=== PATIENT | male | born 1950 | race Caucasian/White ===

== ENCOUNTER 2017-09-15 17:38 | Inpatient (IN) | payer SELFPAY ==
[~2017-09-15] VITALS: Ht 175.3 cm; Wt 143.3 kg
[2017-09-15 19:09] LABS: BASOPHILS % (AUTO) 0.3 % (0.0-2.0); HEMATOCRIT 33.1 % (41-53); HEMOGLOBIN 10.9 g/dL (13.5-17.5); LYMPHOCYTES # (AUTO) 1.4 K/uL (1.0-4.8); LYMPHOCYTES % (AUTO) 13.7 % (22.0-44.0); MEAN CORPUSCULAR HEMOGLOBIN 30.5 pg (26.0-34.0); MEAN CORPUSCULAR VOLUME 93 fL (80-100); MONOCYTES # (AUTO) 0.6 K/uL (0.1-1.0); MONOCYTES % (AUTO) 5.9 % (2.0-9.0); NEUTROPHILS # (AUTO) 7.8 K/uL (1.8-7.7); NEUTROPHILS % (AUTO) 77.1 % (40.0-70.0); PLATELET COUNT (AUTO) 275 K/uL (150-450); RED BLOOD CELL COUNT(AUTO) 3.57 MIL/uL (4.50-5.90); RED CELL DISTRIBUTION WIDTH 18.4 % (11.5-14.5); WHITE BLOOD COUNT (AUTO) 10.1 K/uL (4.5-11.0)
[2017-09-15 19:18] LABS: ANION GAP 5 mmol/L (8-16); CALCIUM, TOTAL 9.2 mg/dL (8.8-10.5); CARBON DIOXIDE 31 mmol/L (22-29); CHLORIDE 106 mmol/L (98-107); CREATININE 1.35 mg/dL (0.60-1.30); GLOMERULAR FILTR. RATE CALC 53 mL/min (>60); SODIUM SERUM 142 mmol/L (136-145); UREA NITROGEN, BLOOD 18 mg/dL (7-18)
[2017-09-15 19:24] LABS: ALANINE AMINOTRANSFERASE 14 U/L (12-78); ALBUMIN 3.5 g/dL (3.4-5.0); ASPARTATE AMINOTRANSFERASE 22 U/L (15-37); BILIRUBIN,TOTAL 1.6 mg/dL (0.1-1.0)
[2017-09-15] MEDS ORDERED: HALOPERIDOL 5 MG TABLET PO PRN (20:45)
[2017-09-15] MEDS ORDERED: ZOLPIDEM TARTRATE 10 MG TABLET PO PRN (20:45)
[2017-09-15] MEDS ORDERED: LORazepam 2 MG TABLET PO PRN (20:45)
[2017-09-15 21:46] LABS: RBC MORPHOLOGY COMMENT ABNORMAL RBC MORPH
[2017-09-15 22:09] LABS: GLUCOSE,POINT OF CARE 139 MG/DL (70-110)
[2017-09-15 22:42] VITALS: BP 129/68
[2017-09-16 01:39] VITALS: BP 134/80
[2017-09-16 07:29] LABS: CHOL/HDL RATIO 3.9 (4.2-7.3); THYROID STIMULATING HORMONE 4.95 uIU/mL (0.36-3.74)
[2017-09-16 08:05] VITALS: BP 150/75
== END 2017-09-16 15:45 | disposition home or self-care (01) | DRG 885 ==
LOC: EMS 17:39 → 3EI 21:56
PROVIDERS: ADMIT Psychiatry & Neurology Psychiatry; ATTEND Psychiatry & Neurology Psychiatry
DX: F23 Brief psychotic disorder (principal); I11.0 Hypertensive heart disease with heart failure; I50.9 Heart failure, unspecified; E11.9 Type 2 diabetes mellitus without complications; D64.9 Anemia, unspecified; F12.90 Cannabis use, unspecified, uncomplicated; F15.90 Other stimulant use, unspecified, uncomplicated; F32.9 Major depressive disorder, single episode, unspecified; E66.3 Overweight; Z68.42 Body mass index [BMI] 45.0-49.9, adult
CPT/HCPCS: 82962; 84439; 84443; 93005; 99285; G0480

== ENCOUNTER 2017-11-22 00:18 | Inpatient (IN) | payer MEDICARE ==
[~2017-11-22] VITALS: Ht 175.3 cm; Wt 1149.6 kg
[2017-11-22] MEDS ORDERED: FURO20 PO (00:34)
[2017-11-22] MEDS ORDERED: HTN PO (00:34)
[2017-11-22] MEDS ORDERED: METF500T4 PO (00:34)
[2017-11-22 00:52] LABS: GLUCOSE,POINT OF CARE 142 MG/DL (70-110)
[2017-11-22 03:27] LABS: BASOPHILS % (AUTO) 0.4 % (0.0-2.0); EOSINOPHILS % (AUTO) 0.9 % (1.0-6.0); HEMATOCRIT 40.9 % (41-53); HEMOGLOBIN 13.2 g/dL (13.5-17.5); LYMPHOCYTES # (AUTO) 1.5 K/uL (1.0-4.8); LYMPHOCYTES % (AUTO) 12.2 % (22.0-44.0); MEAN CORPUSCULAR HEMOGLOBIN 29.9 pg (26.0-34.0); MEAN CORPUSCULAR HGB CONC 32.3 G/dL (31.0-37.0); MEAN CORPUSCULAR VOLUME 93 fL (80-100); MONOCYTES # (AUTO) 0.6 K/uL (0.1-1.0); MONOCYTES % (AUTO) 5.2 % (2.0-9.0); NEUTROPHILS # (AUTO) 10.1 K/uL (1.8-7.7); NEUTROPHILS % (AUTO) 81.3 % (40.0-70.0); RED BLOOD CELL COUNT(AUTO) 4.41 MIL/uL (4.50-5.90); RED CELL DISTRIBUTION WIDTH 17.6 % (11.5-14.5)
[2017-11-22 03:59] LABS: CALCIUM, TOTAL 9.3 mg/dL (8.8-10.5); CREATININE 1.31 mg/dL (0.60-1.30); POTASSIUM 5.4 mmol/L (3.5-5.1)
[2017-11-22 04:05] LABS: ALBUMIN 3.8 g/dL (3.4-5.0); BILIRUBIN,TOTAL 0.8 mg/dL (0.1-1.0); TOTAL PROTEIN, SERUM 8.9 g/dL (6.4-8.2)
[2017-11-22] MEDS ORDERED: AZITHROMYCIN 500 MG/NS 250 ML IV ONE (04:15)
[2017-11-22] MEDS ORDERED: CefTRIAXone 1 GM/DEXTROSE 50 ML IV ONE (04:15)
[2017-11-22] MEDS ORDERED: SODIUM CHLORIDE 0.9% 1,000 ML IV ONE (04:15)
[2017-11-22 04:23] LABS: ABG A-A DIFF O2 487.5 mmHg (10-20.0); ABG BASE EXCESS 9.4 mmol/L (-2.0-3.0); ABG CARBOXYHEMOGLOBIN 2.2 % (0.0-1.5); ABG HCO3 27.9 mmol/L (22.0-26.0); ABG METHEMOGLOBIN 0.6 % (0.0-1.5); ABG OXYGEN CONTENT 17.4 mL/dL (15.0-23.0); ABG OXYGEN SATURATION 88.9 % (95.0-98.0); ABG OXYHEMOGLOBIN 86.4 % (94.0-100.0); ABG TOTAL HEMOGLOBIN 14.3 G/dL (12.0-18.0); PO2, ARTERIAL BG 74.4 mmHg (79.0-87.0); SOURCE, BLOOD GAS ARTERIAL; TEMPERATURE, FAHRENHEIT, BG 98.6 FAHREN (96.0-98.6)
[2017-11-22 04:24] LABS: ABG PCO2 151 mmHg (35-45); ABG PH 7.041 (7.35-7.450); SITE, BLOOD GAS LFT RADIAL
[2017-11-22 04:25] LABS: O2 DEVICE,BLOOD GAS NON REBREATHER (ROOM AIR)
[2017-11-22] MEDS ORDERED: RAPID SEQUENCE KIT [RSI] 1 EACH KIT ONE (04:30)
[2017-11-22] MEDS ORDERED: SUCCINYLCHOLINE CHLORIDE 20 MG/ML 10 ML VIAL ONE (04:31)
[2017-11-22] MEDS ORDERED: PROPOFOL 1000 MG/ISO-OSM 100 ML IV ONE (05:02)
[2017-11-22 05:15] LABS: PLATELET COUNT (AUTO) 263 K/uL (150-450)
[2017-11-22] MEDS ORDERED: ACETAMINOPHEN 325 MG TABLET PO PRN (05:30)
[2017-11-22] MEDS ORDERED: ONDANSETRON HCL 4 MG/2 ML VIAL IVP PRN ×2 (05:30→14:15)
[2017-11-22] MEDS ORDERED: 0.9% SODIUM CHLORIDE 10 ML SYRINGE IVP PRN (05:30)
[2017-11-22] MEDS: PROPOFOL 1000 MG/ISO-OSM 100 ML IV PRN ×6 (05:41→21:45)
[2017-11-22 05:54] LABS: APPEARANCE,URINE CLOUDY (CLEAR); GLUCOSE, URINE (UA) NEGATIVE (NEGATIVE); KETONES,URINE NEGATIVE (NEGATIVE); LEUKOCYTE ESTERASE ,URINE NEGATIVE (NEGATIVE); NITRATE,URINE NEGATIVE (NEGATIVE); OCCULT BLOOD,URINE NEGATIVE (NEGATIVE); PH,URINE 5.5 (5.0-8.0); PROTEIN,URINE SEE CONFIRM (NEGATIVE)
[2017-11-22 05:55] LABS: BILIRUBIN,URINE PRELIM. POSITIVE (NEGATIVE)
[2017-11-22 06:01] LABS: ABG PCO2 84 mmHg (35-45); PO2, ARTERIAL BG 77.9 mmHg (79.0-87.0); SITE, BLOOD GAS LFT RADIAL; SOURCE, BLOOD GAS ARTERIAL; TEMPERATURE, FAHRENHEIT, BG 98.6 FAHREN (96.0-98.6)
[2017-11-22 06:02] LABS: BACTERIA,URINE Few /HPF (None Seen); RBC,URINE 0-2 /HPF (0-2); SULFOSALICYLIC ACID,URINE 2+ (Negative)
[2017-11-22 06:02] LABS: ABG A-A DIFF O2 551.2 mmHg (10-20.0); ABG BASE EXCESS 4.9 mmol/L (-2.0-3.0); ABG HCO3 26.4 mmol/L (22.0-26.0); ABG METHEMOGLOBIN 0.4 % (0.0-1.5); ABG OXYGEN CONTENT 17.8 mL/dL (15.0-23.0); ABG OXYHEMOGLOBIN 91.7 % (94.0-100.0); ABG TOTAL HEMOGLOBIN 13.8 G/dL (12.0-18.0); O2 DEVICE,BLOOD GAS VENTILATOR (ROOM AIR)
[2017-11-22 06:03] LABS: SQUAMOUS EPITHELIAL CELL,UR Few /LPF (None Seen)
[2017-11-22 06:03] LABS: INSPIRATORY TIME, BG 0.8 SEC; PEEP,BG 5 cm H2O; VENT MODE, BG Press. Control Vent (ROOM AIR)
[2017-11-22] MEDS: PHENYLEPHRINE 200 MG/D5%-WATER 250 ML IV PRN (06:37)
[2017-11-22] MEDS ORDERED: SODIUM CHLORIDE 0.9% 250 ML IV ONE (09:02)
[2017-11-22 09:34] LABS: INR 1.2 (0.9-1.1); PROTHROMBIN TIME 12.7 SEC (9.4-11.6)
[2017-11-22 10:38] LABS: ABG A-A DIFF O2 531.7 mmHg (10-20.0); ABG BASE EXCESS 3.4 mmol/L (-2.0-3.0); ABG CARBOXYHEMOGLOBIN 1.4 % (0.0-1.5); ABG HCO3 27.6 mmol/L (22.0-26.0); ABG METHEMOGLOBIN 0.2 % (0.0-1.5); ABG OXYGEN CONTENT 17.9 mL/dL (15.0-23.0); ABG OXYGEN SATURATION 99.6 % (95.0-98.0); ABG PCO2 37 mmHg (35-45); ABG PH 7.482 (7.35-7.450); ABG TOTAL HEMOGLOBIN 12.8 G/dL (12.0-18.0); PO2, ARTERIAL BG 145.6 mmHg (79.0-87.0); SOURCE, BLOOD GAS ARTERIAL; TEMPERATURE, FAHRENHEIT, BG 97.8 FAHREN (96.0-98.6)
[2017-11-22 10:39] LABS: O2 DEVICE,BLOOD GAS VENTILATOR (ROOM AIR); PEEP,BG 5 cm H2O; SITE, BLOOD GAS RT RADIAL; SPONTANEOUS VT, BG 560 ml; VENT MODE, BG Press. Control Vent (ROOM AIR)
[2017-11-22 12:00] VITALS: BP 131/61
[2017-11-22] MEDS ORDERED: ETOMIDATE 2 MG/ML 10 ML VIAL IVP ONE (12:00)
[2017-11-22] MEDS ORDERED: MORPHINE SULFATE 2 MG/ML SYRINGE IVP PRN (14:15)
[2017-11-22] MEDS ORDERED: HYDROCODONE/ACETAMINOPHEN 5-325 MG TABLET PO PRN (14:15)
[2017-11-22] MEDS ORDERED: BISACODYL 10 MG RECTAL RECTAL SUPPOSITORY PR PRN (14:15)
[2017-11-22] MEDS ORDERED: SODIUM POLYSTYRENE SULFONATE 15 GM/60 ML SUSPENSION BOTTLE PO ONE (14:15)
[2017-11-22] MEDS ORDERED: ZOLPIDEM TARTRATE 5 MG TABLET PO PRN (14:15)
[2017-11-22] MEDS: NITROGLYCERIN 2% (1 GM=INCH) PACKET TP SCH (14:38)
[2017-11-22] MEDS: HEPARIN SODIUM,PORCINE 5,000 UNITS/ML VIAL SQ SCH (14:41)
[2017-11-22 16:00] VITALS: BP 117/58
[2017-11-22 20:00] VITALS: BP 124/67
[2017-11-22] MEDS ORDERED: FUROSEMIDE 20 MG/2 ML VIAL IVP SCH (21:00)
[2017-11-22] MEDS: FUROSEMIDE 40 MG/4 ML VIAL IVP SCH (21:43)
[2017-11-22] MEDS: DOCUSATE SODIUM 100 MG CAPSULE PO SCH (21:43)
[2017-11-22] MEDS: CARVEDILOL 6.25 MG TABLET PO SCH (21:44)
[2017-11-23] VITALS: BP 142/72
[2017-11-23] MEDS: HEPARIN SODIUM,PORCINE 5,000 UNITS/ML VIAL SQ SCH ×4 (00:15→23:48)
[2017-11-23] MEDS: NITROGLYCERIN 2% (1 GM=INCH) PACKET TP SCH ×5 (00:16→23:48)
[2017-11-23] MEDS: PROPOFOL 1000 MG/ISO-OSM 100 ML IV PRN ×7 (01:30→20:55)
[2017-11-23 04:00] VITALS: BP 137/75
[2017-11-23] MEDS: CefTRIAXone 1 GM/DEXTROSE 50 ML IV SCH (04:07)
[2017-11-23] MEDS: AZITHROMYCIN 500 MG/NS 250 ML IV SCH (05:12)
[2017-11-23 05:18] LABS: BASOPHILS # (AUTO) 0.03 K/uL (0.00-0.20); BASOPHILS % (AUTO) 0.2 % (0.0-2.0); EOSINOPHILS # (AUTO) 0.13 K/uL (0.00-0.70); EOSINOPHILS % (AUTO) 1.22 % (1.0-6.0); HEMATOCRIT 34.7 % (41-53); HEMOGLOBIN 11.2 g/dL (13.5-17.5); LYMPHOCYTES # (AUTO) 1.6 K/uL (1.0-4.8); LYMPHOCYTES % (AUTO) 14.7 % (22.0-44.0); MEAN CORPUSCULAR HEMOGLOBIN 30.1 pg (26.0-34.0); MEAN CORPUSCULAR HGB CONC 32.3 G/dL (31.0-37.0); MEAN CORPUSCULAR VOLUME 93 fL (80-100); MONOCYTES # (AUTO) 1.1 K/uL (0.1-1.0); NEUTROPHILS # (AUTO) 8.2 K/uL (1.8-7.7); NEUTROPHILS % (AUTO) 73.9 % (40.0-70.0); PLATELET COUNT (AUTO) 233 K/uL (150-450); RED BLOOD CELL COUNT(AUTO) 3.73 MIL/uL (4.50-5.90); RED CELL DISTRIBUTION WIDTH 18.3 % (11.5-14.5)
[2017-11-23 05:32] LABS: CALCIUM, TOTAL 8.7 mg/dL (8.8-10.5); CREATININE 1.61 mg/dL (0.60-1.30); POTASSIUM 3.7 mmol/L (3.5-5.1)
[2017-11-23 08:00] VITALS: BP 157/86
[2017-11-23] MEDS: DOCUSATE SODIUM 100 MG CAPSULE PO SCH ×2 (08:14→20:52)
[2017-11-23] MEDS: PANTOPRAZOLE SODIUM 40 MG DR TABLET PO SCH (08:15)
[2017-11-23] MEDS: CARVEDILOL 6.25 MG TABLET PO SCH ×2 (08:15→20:52)
[2017-11-23] MEDS: FUROSEMIDE 40 MG/4 ML VIAL IVP SCH (08:15)
[2017-11-23] MEDS: ASPIRIN 81 MG EC TABLET PO SCH (08:16)
[2017-11-23 12:00] VITALS: BP 148/68
[2017-11-23] MEDS ORDERED: DEXTROSE 50%-WATER 25 GM/50 ML SYRINGE IVP PRN (13:30)
[2017-11-23 14:54] LABS: SPECIMENTYPE,BODY FLUID PLEURAL
[2017-11-23] MEDS ORDERED: SODIUM CHLORIDE 0.9% 250 ML IV ONE (15:25)
[2017-11-23 16:00] VITALS: BP 138/66
[2017-11-23 16:53] LABS: APPEARANCE,SPUN,BODY FLUID CLEAR (CLEAR); APPEARANCE,UNSPUN,BODY FLUID HAZY (CLEAR); BASOPHILS,BODY FLUID 0 %; COLOR,BODY FLUID YELLOW (LT YELLOW); EOSINOPHILS,BF (ANAL) 0 %; LYMPHOCYTES,BODY FLUID 43 %; MONOCYTES,BODY FLUID 6 %; NEUTROPHILS,BODY FLUID 51 %; TOTAL VOLUME,BODY FLUID 1500 mL; WBC, BODY FLUID 54 /cu. mm.
[2017-11-23 17:13] LABS: GLUCOSE,POINT OF CARE 106 MG/DL (70-110)
[2017-11-23 20:00] VITALS: BP 133/46
[2017-11-24] VITALS: BP 134/61
[2017-11-24] MEDS: PROPOFOL 1000 MG/ISO-OSM 100 ML IV PRN ×10 (01:08→23:49)
[2017-11-24] MEDS ORDERED: SODIUM CHLORIDE 0.9% 250 ML IV ONE ×2 (01:16→18:47)
[2017-11-24 04:00] VITALS: BP 117/57
[2017-11-24] MEDS: CefTRIAXone 1 GM/DEXTROSE 50 ML IV SCH (05:07)
[2017-11-24] MEDS: AZITHROMYCIN 500 MG/NS 250 ML IV SCH (05:25)
[2017-11-24] MEDS: NITROGLYCERIN 2% (1 GM=INCH) PACKET TP SCH ×4 (05:25→23:24)
[2017-11-24 06:04] LABS: BASOPHILS % (AUTO) 0.3 % (0.0-2.0); HEMATOCRIT 33.6 % (41-53); LYMPHOCYTES # (AUTO) 1.4 K/uL (1.0-4.8); LYMPHOCYTES % (AUTO) 15.4 % (22.0-44.0); MEAN CORPUSCULAR HEMOGLOBIN 30.1 pg (26.0-34.0); MEAN CORPUSCULAR HGB CONC 32.8 G/dL (31.0-37.0); MEAN CORPUSCULAR VOLUME 92 fL (80-100); MONOCYTES # (AUTO) 0.8 K/uL (0.1-1.0); MONOCYTES % (AUTO) 9.3 % (2.0-9.0); NEUTROPHILS # (AUTO) 6.6 K/uL (1.8-7.7); PLATELET COUNT (AUTO) 222 K/uL (150-450); RED BLOOD CELL COUNT(AUTO) 3.67 MIL/uL (4.50-5.90); RED CELL DISTRIBUTION WIDTH 18.3 % (11.5-14.5)
[2017-11-24 06:20] LABS: CALCIUM, TOTAL 8.3 mg/dL (8.8-10.5); CREATININE 1.36 mg/dL (0.60-1.30)
[2017-11-24 06:45] LABS: POTASSIUM 2.9 mmol/L (3.5-5.1)
[2017-11-24] MEDS ORDERED: POTASSIUM CHLORIDE 20 MEQ ER TABLET PO PRN (07:45)
[2017-11-24 08:00] VITALS: BP 132/71
[2017-11-24] MEDS: HEPARIN SODIUM,PORCINE 5,000 UNITS/ML VIAL SQ SCH ×2 (08:58→15:17)
[2017-11-24] MEDS: CARVEDILOL 6.25 MG TABLET PO SCH ×2 (08:59→20:48)
[2017-11-24] MEDS: PANTOPRAZOLE SODIUM 40 MG DR TABLET PO SCH (08:59)
[2017-11-24] MEDS: DOCUSATE SODIUM 100 MG CAPSULE PO SCH ×2 (08:59→20:48)
[2017-11-24] MEDS: ASPIRIN 81 MG EC TABLET PO SCH (08:59)
[2017-11-24] MEDS: POTASSIUM CHL 10 MEQ/WATER 50 ML IV PRN ×11 (09:01→22:26)
[2017-11-24 10:28] LABS: GLUCOSE,POINT OF CARE 126 MG/DL (70-110)
[2017-11-24 12:00] VITALS: BP 121/61
[2017-11-24] MEDS: FUROSEMIDE 20 MG/2 ML VIAL IVP SCH ×2 (15:17→23:24)
[2017-11-24 16:00] VITALS: BP 124/43
[2017-11-24 17:48] LABS: GLUCOSE,POINT OF CARE 119 MG/DL (70-110)
[2017-11-24 17:48] LABS: GLUCOSE,POINT OF CARE 128 MG/DL (70-110)
[2017-11-24 18:53] LABS: GLUCOSE,POINT OF CARE 102 MG/DL (70-110)
[2017-11-24 18:53] LABS: GLUCOSE,POINT OF CARE 114 MG/DL (70-110)
[2017-11-24 20:00] VITALS: BP 132/66
[2017-11-24] MEDS: ENOXAPARIN SODIUM 80 MG/0.8 ML PF SYRINGE SQ SCH (20:49)
[2017-11-24] MEDS ORDERED: PNEUMOCOCCAL VACCINE POLYVALENT 0.5 ML VIAL [PPSV23] IM ONE (23:15)
[2017-11-24] MEDS ORDERED: INFLUENZA VIRUS VACCINE QVS 2017-18 (3YR+)/PF 60 MCG/0.5 ML SYRINGE IM ONE (23:15)
[2017-11-24] MEDS: INSULIN REGULAR, HUMAN 100 UNITS/ML SQ PRN (23:38)
[2017-11-25] VITALS: BP 121/54
[2017-11-25] MEDS: POTASSIUM CHL 10 MEQ/WATER 50 ML IV PRN ×9 (00:55→16:30)
[2017-11-25 04:00] VITALS: BP 105/66
[2017-11-25] MEDS: CefTRIAXone 1 GM/DEXTROSE 50 ML IV SCH (04:18)
[2017-11-25] MEDS: PROPOFOL 1000 MG/ISO-OSM 100 ML IV PRN ×8 (04:21→22:23)
[2017-11-25] MEDS: AZITHROMYCIN 500 MG/NS 250 ML IV SCH (05:17)
[2017-11-25] MEDS: NITROGLYCERIN 2% (1 GM=INCH) PACKET TP SCH ×3 (05:17→17:51)
[2017-11-25] MEDS: INSULIN REGULAR, HUMAN 100 UNITS/ML SQ PRN ×2 (05:34→06:15)
[2017-11-25 06:51] LABS: BASOPHILS # (AUTO) 0.05 K/uL (0.00-0.20); BASOPHILS % (AUTO) 0.6 % (0.0-2.0); EOSINOPHILS # (AUTO) 0.16 K/uL (0.00-0.70); EOSINOPHILS % (AUTO) 1.96 % (1.0-6.0); HEMATOCRIT 34.3 % (41-53); HEMOGLOBIN 11.3 g/dL (13.5-17.5); LYMPHOCYTES # (AUTO) 1.6 K/uL (1.0-4.8); LYMPHOCYTES % (AUTO) 19.6 % (22.0-44.0); MEAN CORPUSCULAR HEMOGLOBIN 29.9 pg (26.0-34.0); MEAN CORPUSCULAR HGB CONC 32.9 G/dL (31.0-37.0); MEAN CORPUSCULAR VOLUME 91 fL (80-100); MONOCYTES # (AUTO) 0.5 K/uL (0.1-1.0); MONOCYTES % (AUTO) 6.2 % (2.0-9.0); NEUTROPHILS # (AUTO) 5.8 K/uL (1.8-7.7); NEUTROPHILS % (AUTO) 71.6 % (40.0-70.0); PLATELET COUNT (AUTO) 215 K/uL (150-450); RED BLOOD CELL COUNT(AUTO) 3.78 MIL/uL (4.50-5.90); RED CELL DISTRIBUTION WIDTH 18.6 % (11.5-14.5)
[2017-11-25 07:10] LABS: CALCIUM, TOTAL 8.5 mg/dL (8.8-10.5); CREATININE 1.43 mg/dL (0.60-1.30); MAGNESIUM 1.7 mg/dL (1.80-2.40); PHOSPHORUS 2.2 mg/dL (2.5-4.9); POTASSIUM 3.2 mmol/L (3.5-5.1)
[2017-11-25 07:22] LABS: GLUCOSE,POINT OF CARE 155 MG/DL (70-110)
[2017-11-25] MEDS ORDERED: SUCCINYLCHOLINE CHLORIDE 20 MG/ML 10 ML VIAL IVP ONE (07:53)
[2017-11-25 08:00] VITALS: BP 112/53
[2017-11-25] MEDS: ENOXAPARIN SODIUM 80 MG/0.8 ML PF SYRINGE SQ SCH ×2 (08:13→20:52)
[2017-11-25] MEDS: CARVEDILOL 6.25 MG TABLET PO SCH ×2 (08:13→20:52)
[2017-11-25] MEDS: NYSTATIN 15 GM POWDER BOTTLE TP SCH (08:13)
[2017-11-25] MEDS: ASPIRIN 81 MG EC TABLET PO SCH (08:13)
[2017-11-25] MEDS: PANTOPRAZOLE SODIUM 40 MG DR TABLET PO SCH (08:13)
[2017-11-25] MEDS: FUROSEMIDE 20 MG/2 ML VIAL IVP SCH ×2 (08:13→15:37)
[2017-11-25] MEDS: DOCUSATE SODIUM 100 MG CAPSULE PO SCH ×2 (08:14→20:52)
[2017-11-25 08:38] LABS: ABG A-A DIFF O2 474.5 mmHg (10-20.0); ABG BASE EXCESS 7.5 mmol/L (-2.0-3.0); ABG CARBOXYHEMOGLOBIN 1.2 % (0.0-1.5); ABG METHEMOGLOBIN 0.1 % (0.0-1.5); ABG OXYGEN CONTENT 16.5 mL/dL (15.0-23.0); ABG OXYGEN SATURATION 95.8 % (95.0-98.0); ABG OXYHEMOGLOBIN 94.6 % (94.0-100.0); ABG PCO2 25 mmHg (35-45); ABG TOTAL HEMOGLOBIN 12.4 G/dL (12.0-18.0); PO2, ARTERIAL BG 69.3 mmHg (79.0-87.0); SOURCE, BLOOD GAS ARTERIAL; TEMPERATURE, FAHRENHEIT, BG 98.6 FAHREN (96.0-98.6)
[2017-11-25 08:43] LABS: ABG PH 7.663 (7.35-7.450); O2 DEVICE,BLOOD GAS VENTILATOR (ROOM AIR); PEEP,BG 5 cm H2O; SITE, BLOOD GAS RT RADIAL; VENT MODE, BG Press. Control Vent (ROOM AIR)
[2017-11-25 08:44] LABS: SPONTANEOUS VT, BG 624 ml
[2017-11-25] MEDS ORDERED: MAGNESIUM OXIDE 400 MG TABLET PO PRN (11:30)
[2017-11-25] MEDS ORDERED: MAGNESIUM SULFATE 4 GM/WATER 100 ML IV PRN (11:30)
[2017-11-25] MEDS ORDERED: MAGNESIUM SULFATE 2 GM in DEXTROSE 5%-WATER 50 ML IV PRN (11:30)
[2017-11-25] MEDS ORDERED: POTASSIUM PHOS/SODIUM PHOS MIXTURE 1 POWDER PACKET PO ONE (11:45)
[2017-11-25 12:00] VITALS: BP 105/54
[2017-11-25] MEDS: ACETAMINOPHEN 325 MG TABLET PO PRN (15:51)
[2017-11-25 16:00] VITALS: BP 106/52
[2017-11-25 20:00] VITALS: BP 98/56
[2017-11-25] MEDS ORDERED: SODIUM CHLORIDE 0.9% 250 ML IV ONE (20:44)
[2017-11-26] VITALS: BP 101/57
[2017-11-26] MEDS: FUROSEMIDE 20 MG/2 ML VIAL IVP SCH ×3 (00:47→16:38)
[2017-11-26] MEDS: PROPOFOL 1000 MG/ISO-OSM 100 ML IV PRN ×6 (00:48→20:33)
[2017-11-26] MEDS: INSULIN REGULAR, HUMAN 100 UNITS/ML SQ PRN (00:50)
[2017-11-26 04:00] VITALS: BP 109/65
[2017-11-26] MEDS: CefTRIAXone 1 GM/DEXTROSE 50 ML IV SCH (04:33)
[2017-11-26 04:53] LABS: GLUCOSE,POINT OF CARE 135 MG/DL (70-110)
[2017-11-26 04:53] LABS: GLUCOSE,POINT OF CARE 135 MG/DL (70-110)
[2017-11-26 04:53] LABS: GLUCOSE,POINT OF CARE 149 MG/DL (70-110)
[2017-11-26 05:50] LABS: CREATININE 1.53 mg/dL (0.60-1.30); MAGNESIUM 1.9 mg/dL (1.80-2.40); PHOSPHORUS 4.5 mg/dL (2.5-4.9); POTASSIUM 3.9 mmol/L (3.5-5.1)
[2017-11-26 05:54] LABS: BASOPHILS % (AUTO) 0.1 % (0.0-2.0); EOSINOPHILS % (AUTO) 4.2 % (1.0-6.0); HEMATOCRIT 33.9 % (41-53); HEMOGLOBIN 11.1 g/dL (13.5-17.5); LYMPHOCYTES # (AUTO) 1.4 K/uL (1.0-4.8); LYMPHOCYTES % (AUTO) 15.9 % (22.0-44.0); MEAN CORPUSCULAR HGB CONC 32.8 G/dL (31.0-37.0); MEAN CORPUSCULAR VOLUME 91 fL (80-100); MONOCYTES # (AUTO) 0.5 K/uL (0.1-1.0); MONOCYTES % (AUTO) 5.1 % (2.0-9.0); NEUTROPHILS # (AUTO) 6.6 K/uL (1.8-7.7); NEUTROPHILS % (AUTO) 74.7 % (40.0-70.0); PLATELET COUNT (AUTO) 205 K/uL (150-450); RED BLOOD CELL COUNT(AUTO) 3.72 MIL/uL (4.50-5.90); RED CELL DISTRIBUTION WIDTH 18.8 % (11.5-14.5)
[2017-11-26] MEDS: NITROGLYCERIN 2% (1 GM=INCH) PACKET TP SCH ×4 (06:00→17:20)
[2017-11-26] MEDS: AZITHROMYCIN 500 MG/NS 250 ML IV SCH (07:24)
[2017-11-26 08:00] VITALS: BP 108/68
[2017-11-26] MEDS: CARVEDILOL 6.25 MG TABLET PO SCH ×2 (09:00→20:34)
[2017-11-26 09:15] LABS: ABG A-A DIFF O2 454.3 mmHg (10-20.0); ABG BASE EXCESS 1.8 mmol/L (-2.0-3.0); ABG CARBOXYHEMOGLOBIN 1.3 % (0.0-1.5); ABG HCO3 26.2 mmol/L (22.0-26.0); ABG METHEMOGLOBIN 0.1 % (0.0-1.5); ABG OXYGEN CONTENT 16.1 mL/dL (15.0-23.0); ABG OXYGEN SATURATION 95.5 % (95.0-98.0); ABG OXYHEMOGLOBIN 94.2 % (94.0-100.0); ABG PCO2 35 mmHg (35-45); ABG PH 7.476 (7.35-7.450); ABG TOTAL HEMOGLOBIN 12.1 G/dL (12.0-18.0); PO2, ARTERIAL BG 79.3 mmHg (79.0-87.0); SOURCE, BLOOD GAS ARTERIAL; TEMPERATURE, FAHRENHEIT, BG 98.6 FAHREN (96.0-98.6)
[2017-11-26] MEDS: DOCUSATE SODIUM 100 MG CAPSULE PO SCH ×2 (09:22→20:34)
[2017-11-26] MEDS: PANTOPRAZOLE SODIUM 40 MG DR TABLET PO SCH (09:22)
[2017-11-26] MEDS: ASPIRIN 81 MG EC TABLET PO SCH (09:23)
[2017-11-26] MEDS: ENOXAPARIN SODIUM 80 MG/0.8 ML PF SYRINGE SQ SCH ×2 (09:23→20:34)
[2017-11-26] MEDS: NYSTATIN 15 GM POWDER BOTTLE TP SCH (09:24)
[2017-11-26 09:26] LABS: O2 DEVICE,BLOOD GAS VENTILATOR (ROOM AIR); SITE, BLOOD GAS RT RADIAL; VENT MODE, BG Press. Control Vent (ROOM AIR)
[2017-11-26 09:27] LABS: PEEP,BG 5 cm H2O; SPONTANEOUS VT, BG 584 ml
[2017-11-26 12:00] VITALS: BP 104/63
[2017-11-26] MEDS ORDERED: SODIUM CHLORIDE 0.9% 250 ML IV ONE (12:19)
[2017-11-26 16:00] VITALS: BP 96/42
[2017-11-26] MEDS: MAGNESIUM HYDROXIDE SUSPENSION 30 ML UDCUP PO PRN (16:40)
[2017-11-26 18:13] LABS: GLUCOSE,POINT OF CARE 122 MG/DL (70-110)
[2017-11-26 18:13] LABS: GLUCOSE,POINT OF CARE 126 MG/DL (70-110)
[2017-11-26 20:00] VITALS: BP 112/57
[2017-11-27] VITALS: BP 89/51
[2017-11-27] MEDS: FUROSEMIDE 20 MG/2 ML VIAL IVP SCH ×2 (00:58→09:28)
[2017-11-27] MEDS: PROPOFOL 1000 MG/ISO-OSM 100 ML IV PRN ×6 (00:59→23:27)
[2017-11-27 04:00] VITALS: BP 92/53
[2017-11-27] MEDS: NITROGLYCERIN 2% (1 GM=INCH) PACKET TP SCH ×3 (06:00→12:00)
[2017-11-27] MEDS: CefTRIAXone 1 GM/DEXTROSE 50 ML IV SCH (06:10)
[2017-11-27] MEDS: AZITHROMYCIN 500 MG/NS 250 ML IV SCH (06:10)
[2017-11-27 06:17] LABS: BASOPHILS # (AUTO) 0.03 K/uL (0.00-0.20); BASOPHILS % (AUTO) 0.3 % (0.0-2.0); EOSINOPHILS # (AUTO) 0.28 K/uL (0.00-0.70); EOSINOPHILS % (AUTO) 3.06 % (1.0-6.0); HEMATOCRIT 34.2 % (41-53); HEMOGLOBIN 10.9 g/dL (13.5-17.5); LYMPHOCYTES # (AUTO) 1.3 K/uL (1.0-4.8); LYMPHOCYTES % (AUTO) 14.1 % (22.0-44.0); MEAN CORPUSCULAR HEMOGLOBIN 29.4 pg (26.0-34.0); MEAN CORPUSCULAR HGB CONC 31.9 G/dL (31.0-37.0); MEAN CORPUSCULAR VOLUME 92 fL (80-100); MONOCYTES # (AUTO) 0.5 K/uL (0.1-1.0); MONOCYTES % (AUTO) 5.2 % (2.0-9.0); NEUTROPHILS % (AUTO) 77.3 % (40.0-70.0); PLATELET COUNT (AUTO) 178 K/uL (150-450); RED BLOOD CELL COUNT(AUTO) 3.72 MIL/uL (4.50-5.90); RED CELL DISTRIBUTION WIDTH 18.6 % (11.5-14.5)
[2017-11-27 06:35] LABS: CALCIUM, TOTAL 8.3 mg/dL (8.8-10.5); CKMB RELATIVE INDEX 0.6 % (0.0-4.0); CREATINE KINASE MB 6.2 ng/mL (0-5); CREATININE 1.63 mg/dL (0.60-1.30); MAGNESIUM 2.1 mg/dL (1.80-2.40); POTASSIUM 3.6 mmol/L (3.5-5.1)
[2017-11-27 07:27] LABS: GLUCOSE,POINT OF CARE 122 MG/DL (70-110)
[2017-11-27 08:00] VITALS: BP 85/50
[2017-11-27] MEDS: PHENYLEPHRINE 200 MG/D5%-WATER 250 ML IV PRN (08:20)
[2017-11-27 08:22] LABS: GLUCOSE,POINT OF CARE 123 MG/DL (70-110)
[2017-11-27 08:23] LABS: GLUCOSE,POINT OF CARE 140 MG/DL (70-110)
[2017-11-27 08:27] LABS: GLUCOSE,POINT OF CARE 125 MG/DL (70-110)
[2017-11-27] MEDS: CARVEDILOL 6.25 MG TABLET PO SCH (09:00)
[2017-11-27] MEDS: DOCUSATE SODIUM 100 MG CAPSULE PO SCH ×2 (09:28→20:16)
[2017-11-27] MEDS: ASPIRIN 81 MG EC TABLET PO SCH (09:29)
[2017-11-27] MEDS: PANTOPRAZOLE SODIUM 40 MG DR TABLET PO SCH (09:29)
[2017-11-27] MEDS: NYSTATIN 15 GM POWDER BOTTLE TP SCH (09:30)
[2017-11-27] MEDS: ENOXAPARIN SODIUM 80 MG/0.8 ML PF SYRINGE SQ SCH ×2 (09:30→22:15)
[2017-11-27] MEDS: POTASSIUM CHL 10 MEQ/WATER 50 ML IV PRN ×3 (11:30→14:25)
[2017-11-27 12:00] VITALS: BP 100/59
[2017-11-27 12:36] LABS: ABG A-A DIFF O2 347.3 mmHg (10-20.0); ABG BASE EXCESS 8.5 mmol/L (-2.0-3.0); ABG CARBOXYHEMOGLOBIN 1.5 % (0.0-1.5); ABG HCO3 31.9 mmol/L (22.0-26.0); ABG METHEMOGLOBIN 0.4 % (0.0-1.5); ABG OXYGEN CONTENT 16.9 mL/dL (15.0-23.0); ABG OXYGEN SATURATION 95.7 % (95.0-98.0); ABG OXYHEMOGLOBIN 93.9 % (94.0-100.0); ABG PCO2 38 mmHg (35-45); ABG PH 7.537 (7.35-7.450); ABG TOTAL HEMOGLOBIN 12.8 G/dL (12.0-18.0); O2 DEVICE,BLOOD GAS VENTILATOR (ROOM AIR); PEEP,BG 5 cm H2O; PO2, ARTERIAL BG 75.4 mmHg (79.0-87.0); SITE, BLOOD GAS LFT RADIAL; SOURCE, BLOOD GAS ARTERIAL; TEMPERATURE, FAHRENHEIT, BG 98.6 FAHREN (96.0-98.6); VENT MODE, BG Press. Control Vent (ROOM AIR)
[2017-11-27 12:37] LABS: SPONTANEOUS VT, BG 600 ml
[2017-11-27] MEDS: INSULIN REGULAR, HUMAN 100 UNITS/ML SQ PRN ×2 (13:17→17:36)
[2017-11-27 16:00] VITALS: BP 106/73
[2017-11-27 20:00] VITALS: BP 122/77
[2017-11-27] MEDS ORDERED: SODIUM CHLORIDE 0.9% 250 ML IV ONE (20:10)
[2017-11-27] MEDS: FUROSEMIDE 40 MG/4 ML VIAL IVP SCH (20:16)
[2017-11-27] MEDS: MAGNESIUM HYDROXIDE SUSPENSION 30 ML UDCUP PO PRN (20:16)
[2017-11-27] MEDS: ACETAMINOPHEN 325 MG TABLET PO PRN (22:15)
[2017-11-28] VITALS: BP 99/67
[2017-11-28] MEDS: PROPOFOL 1000 MG/ISO-OSM 100 ML IV PRN ×8 (02:12→23:54)
[2017-11-28 04:00] VITALS: BP 90/57
[2017-11-28] MEDS: CefTRIAXone 1 GM/DEXTROSE 50 ML IV SCH (04:34)
[2017-11-28] MEDS: AZITHROMYCIN 500 MG/NS 250 ML IV SCH (05:05)
[2017-11-28 06:22] LABS: BASOPHILS % (AUTO) 0.4 % (0.0-2.0); EOSINOPHILS % (AUTO) 2.4 % (1.0-6.0); HEMATOCRIT 35.6 % (41-53); HEMOGLOBIN 11.6 g/dL (13.5-17.5); LYMPHOCYTES # (AUTO) 1.4 K/uL (1.0-4.8); LYMPHOCYTES % (AUTO) 10.4 % (22.0-44.0); MEAN CORPUSCULAR HEMOGLOBIN 29.7 pg (26.0-34.0); MEAN CORPUSCULAR HGB CONC 32.5 G/dL (31.0-37.0); MEAN CORPUSCULAR VOLUME 91 fL (80-100); MONOCYTES # (AUTO) 0.9 K/uL (0.1-1.0); MONOCYTES % (AUTO) 6.7 % (2.0-9.0); NEUTROPHILS # (AUTO) 10.8 K/uL (1.8-7.7); NEUTROPHILS % (AUTO) 80.1 % (40.0-70.0); PLATELET COUNT (AUTO) 221 K/uL (150-450); RED CELL DISTRIBUTION WIDTH 18.3 % (11.5-14.5)
[2017-11-28 06:44] LABS: ALBUMIN 2.3 g/dL (3.4-5.0); BILIRUBIN,TOTAL 0.9 mg/dL (0.1-1.0); CALCIUM, TOTAL 8.3 mg/dL (8.8-10.5); CREATININE 1.45 mg/dL (0.60-1.30); POTASSIUM 3.6 mmol/L (3.5-5.1); TOTAL PROTEIN, SERUM 6.8 g/dL (6.4-8.2)
[2017-11-28 06:58] LABS: GLUCOSE,POINT OF CARE 119 MG/DL (70-110)
[2017-11-28 08:00] VITALS: BP 90/57
[2017-11-28] MEDS: FUROSEMIDE 40 MG/4 ML VIAL IVP SCH ×2 (08:46→20:43)
[2017-11-28] MEDS: DOCUSATE SODIUM 100 MG CAPSULE PO SCH ×2 (08:46→20:43)
[2017-11-28] MEDS: ENOXAPARIN SODIUM 80 MG/0.8 ML PF SYRINGE SQ SCH ×2 (08:46→20:46)
[2017-11-28] MEDS: NYSTATIN 15 GM POWDER BOTTLE TP SCH (08:47)
[2017-11-28] MEDS: PANTOPRAZOLE SODIUM 40 MG DR TABLET PO SCH (08:47)
[2017-11-28] MEDS: ASPIRIN 81 MG EC TABLET PO SCH (08:47)
[2017-11-28 12:00] VITALS: BP 101/62
[2017-11-28 12:10] LABS: GLUCOSE,POINT OF CARE 148 MG/DL (70-110)
[2017-11-28 12:10] LABS: GLUCOSE,POINT OF CARE 121 MG/DL (70-110)
[2017-11-28 12:10] LABS: GLUCOSE,POINT OF CARE 123 MG/DL (70-110)
[2017-11-28] MEDS: INSULIN REGULAR, HUMAN 100 UNITS/ML SQ PRN (13:28)
[2017-11-28 16:00] VITALS: BP 90/52
[2017-11-28 20:00] VITALS: BP 134/77
[2017-11-29] VITALS: BP 105/61
[2017-11-29] MEDS: PROPOFOL 1000 MG/ISO-OSM 100 ML IV PRN ×7 (03:14→23:57)
[2017-11-29 04:00] VITALS: BP 102/63
[2017-11-29] MEDS: CefTRIAXone 1 GM/DEXTROSE 50 ML IV SCH (05:28)
[2017-11-29] MEDS: AZITHROMYCIN 500 MG/NS 250 ML IV SCH (05:29)
[2017-11-29] MEDS ORDERED: SODIUM CHLORIDE 0.9% 250 ML IV ONE ×2 (05:34→22:35)
[2017-11-29 05:58] LABS: GLUCOSE,POINT OF CARE 120 MG/DL (70-110)
[2017-11-29 05:59] LABS: CHOL/HDL RATIO 6.9 (4.2-7.3)
[2017-11-29 08:00] VITALS: BP 121/69
[2017-11-29] MEDS: PANTOPRAZOLE SODIUM 40 MG DR TABLET PO SCH (08:57)
[2017-11-29] MEDS: FUROSEMIDE 40 MG/4 ML VIAL IVP SCH ×2 (08:57→20:30)
[2017-11-29] MEDS: ASPIRIN 81 MG EC TABLET PO SCH (08:57)
[2017-11-29] MEDS: DOCUSATE SODIUM 100 MG CAPSULE PO SCH ×2 (08:57→20:30)
[2017-11-29] MEDS: ENOXAPARIN SODIUM 80 MG/0.8 ML PF SYRINGE SQ SCH ×2 (08:58→20:30)
[2017-11-29] MEDS: NYSTATIN 15 GM POWDER BOTTLE TP SCH (08:58)
[2017-11-29] MEDS: AMINO ACIDS/PROTEIN HYDROLYS 30 ML TUBE PO SCH (08:58)
[2017-11-29 10:54] LABS: ABG A-A DIFF O2 451.3 mmHg (10-20.0); ABG BASE EXCESS 8.3 mmol/L (-2.0-3.0); ABG CARBOXYHEMOGLOBIN 1.1 % (0.0-1.5); ABG HCO3 30.7 mmol/L (22.0-26.0); ABG METHEMOGLOBIN 0.1 % (0.0-1.5); ABG OXYGEN CONTENT 14.9 mL/dL (15.0-23.0); ABG OXYGEN SATURATION 90.9 % (95.0-98.0); ABG OXYHEMOGLOBIN 89.8 % (94.0-100.0); ABG PCO2 54 mmHg (35-45); ABG PH 7.404 (7.35-7.450); ABG TOTAL HEMOGLOBIN 11.8 G/dL (12.0-18.0); O2 DEVICE,BLOOD GAS VENTILATOR (ROOM AIR); PO2, ARTERIAL BG 62.7 mmHg (79.0-87.0); SITE, BLOOD GAS RT RADIAL; SOURCE, BLOOD GAS ARTERIAL; TEMPERATURE, FAHRENHEIT, BG 98.4 FAHREN (96.0-98.6)
[2017-11-29 10:55] LABS: VENT MODE, BG Press. Control Vent (ROOM AIR)
[2017-11-29 10:56] LABS: PEEP,BG 5 cm H2O
[2017-11-29 12:00] VITALS: BP 105/61
[2017-11-29 12:57] LABS: GLUCOSE,POINT OF CARE 127 MG/DL (70-110)
[2017-11-29 16:00] VITALS: BP 95/57
[2017-11-29 16:48] LABS: GLUCOSE,POINT OF CARE 126 MG/DL (70-110)
[2017-11-29 20:00] VITALS: BP 99/50
[2017-11-29] MEDS: INSULIN REGULAR, HUMAN 100 UNITS/ML SQ PRN (23:19)
[2017-11-30] VITALS: BP 130/68
[2017-11-30 00:43] LABS: GLUCOSE,POINT OF CARE 129 MG/DL (70-110)
[2017-11-30 02:23] LABS: GLUCOSE,POINT OF CARE 137 MG/DL (70-110)
[2017-11-30 02:23] LABS: GLUCOSE,POINT OF CARE 129 MG/DL (70-110)
[2017-11-30 02:23] LABS: GLUCOSE,POINT OF CARE 141 MG/DL (70-110)
[2017-11-30] MEDS: PROPOFOL 1000 MG/ISO-OSM 100 ML IV PRN ×6 (02:52→21:56)
[2017-11-30 04:00] VITALS: BP 122/70
[2017-11-30] MEDS: CefTRIAXone 1 GM/DEXTROSE 50 ML IV SCH (04:21)
[2017-11-30] MEDS: INSULIN REGULAR, HUMAN 100 UNITS/ML SQ PRN ×3 (04:36→06:20)
[2017-11-30] MEDS: AZITHROMYCIN 500 MG/NS 250 ML IV SCH (05:15)
[2017-11-30 05:29] LABS: BASOPHILS # (AUTO) 0.02 K/uL (0.00-0.20); BASOPHILS % (AUTO) 0.3 % (0.0-2.0); EOSINOPHILS # (AUTO) 0.31 K/uL (0.00-0.70); EOSINOPHILS % (AUTO) 3.19 % (1.0-6.0); HEMATOCRIT 35.2 % (41-53); HEMOGLOBIN 11.3 g/dL (13.5-17.5); LYMPHOCYTES % (AUTO) 10.5 % (22.0-44.0); MEAN CORPUSCULAR HEMOGLOBIN 29.5 pg (26.0-34.0); MEAN CORPUSCULAR HGB CONC 32.1 G/dL (31.0-37.0); MEAN CORPUSCULAR VOLUME 92 fL (80-100); MONOCYTES # (AUTO) 0.8 K/uL (0.1-1.0); MONOCYTES % (AUTO) 7.8 % (2.0-9.0); NEUTROPHILS # (AUTO) 7.5 K/uL (1.8-7.7); NEUTROPHILS % (AUTO) 78.3 % (40.0-70.0); PLATELET COUNT (AUTO) 178 K/uL (150-450); RED BLOOD CELL COUNT(AUTO) 3.82 MIL/uL (4.50-5.90); RED CELL DISTRIBUTION WIDTH 17.9 % (11.5-14.5)
[2017-11-30 05:34] LABS: ANION GAP 3 mmol/L (8-16); CALCIUM, TOTAL 8.7 mg/dL (8.8-10.5); CARBON DIOXIDE 36 mmol/L (22-29); CHLORIDE 101 mmol/L (98-107); CREATININE 1.08 mg/dL (0.60-1.30); GLOMERULAR FILTR. RATE CALC > 60 mL/min (>60); GLUCOSE,RANDOM 133 mg/dL (70-110); POTASSIUM 3.2 mmol/L (3.5-5.1); SODIUM SERUM 140 mmol/L (136-145); UREA NITROGEN, BLOOD 33 mg/dL (7-18)
[2017-11-30 06:16] LABS: GLUCOSE,POINT OF CARE 131 MG/DL (70-110)
[2017-11-30] MEDS: POTASSIUM CHL 10 MEQ/WATER 50 ML IV PRN ×4 (06:34→23:50)
[2017-11-30 08:00] VITALS: BP 107/54
[2017-11-30] MEDS: PANTOPRAZOLE SODIUM 40 MG DR TABLET PO SCH (08:34)
[2017-11-30] MEDS: FUROSEMIDE 40 MG/4 ML VIAL IVP SCH ×2 (08:34→21:26)
[2017-11-30] MEDS: ENOXAPARIN SODIUM 80 MG/0.8 ML PF SYRINGE SQ SCH ×2 (08:34→21:26)
[2017-11-30] MEDS: NYSTATIN 15 GM POWDER BOTTLE TP SCH (08:34)
[2017-11-30] MEDS: ASPIRIN 81 MG EC TABLET PO SCH (08:34)
[2017-11-30] MEDS: DOCUSATE SODIUM 100 MG CAPSULE PO SCH ×2 (08:34→21:25)
[2017-11-30] MEDS: AMINO ACIDS/PROTEIN HYDROLYS 30 ML TUBE PO SCH (08:35)
[2017-11-30 09:29] LABS: ABG A-A DIFF O2 242.3 mmHg (10-20.0); ABG BASE EXCESS 10.7 mmol/L (-2.0-3.0); ABG CARBOXYHEMOGLOBIN 1.2 % (0.0-1.5); ABG HCO3 33.4 mmol/L (22.0-26.0); ABG METHEMOGLOBIN 0.2 % (0.0-1.5); ABG OXYGEN CONTENT 15.4 mL/dL (15.0-23.0); ABG OXYHEMOGLOBIN 92.7 % (94.0-100.0); ABG PCO2 43 mmHg (35-45); ABG PH 7.516 (7.35-7.450); ABG TOTAL HEMOGLOBIN 11.8 G/dL (12.0-18.0); PO2, ARTERIAL BG 66.4 mmHg (79.0-87.0); SOURCE, BLOOD GAS ARTERIAL; TEMPERATURE, FAHRENHEIT, BG 98.6 FAHREN (96.0-98.6)
[2017-11-30 09:35] LABS: SITE, BLOOD GAS RT RADIAL
[2017-11-30 09:36] LABS: O2 DEVICE,BLOOD GAS VENTILATOR (ROOM AIR); PEEP,BG 5 cm H2O; VT, ABG 700 ml
[2017-11-30 12:00] VITALS: BP 121/72
[2017-11-30 16:00] VITALS: BP 117/66
[2017-11-30 19:22] LABS: GLUCOSE,POINT OF CARE 118 MG/DL (70-110)
[2017-11-30 19:23] LABS: GLUCOSE,POINT OF CARE 138 MG/DL (70-110)
[2017-11-30 20:00] VITALS: BP 112/64
[2017-12-01] VITALS: BP 125/66
[2017-12-01] MEDS: POTASSIUM CHL 10 MEQ/WATER 50 ML IV PRN ×8 (00:36→16:24)
[2017-12-01] MEDS: PROPOFOL 1000 MG/ISO-OSM 100 ML IV PRN ×7 (01:20→22:42)
[2017-12-01 04:00] VITALS: BP 115/61
[2017-12-01] MEDS: CefTRIAXone 1 GM/DEXTROSE 50 ML IV SCH (04:51)
[2017-12-01] MEDS ORDERED: SODIUM CHLORIDE 0.9% 250 ML IV ONE (04:55)
[2017-12-01] MEDS: AZITHROMYCIN 500 MG/NS 250 ML IV SCH (05:41)
[2017-12-01 06:59] LABS: ANION GAP 6 mmol/L (8-16); CALCIUM, TOTAL 8.4 mg/dL (8.8-10.5); CARBON DIOXIDE 34 mmol/L (22-29); CHLORIDE 101 mmol/L (98-107); CREATININE 1.12 mg/dL (0.60-1.30); GLOMERULAR FILTR. RATE CALC > 60 mL/min (>60); GLUCOSE,RANDOM 104 mg/dL (70-110); POTASSIUM 3.3 mmol/L (3.5-5.1); SODIUM SERUM 141 mmol/L (136-145); UREA NITROGEN, BLOOD 31 mg/dL (7-18)
[2017-12-01 07:06] LABS: BASOPHILS # (AUTO) 0.03 K/uL (0.00-0.20); BASOPHILS % (AUTO) 0.3 % (0.0-2.0); EOSINOPHILS # (AUTO) 0.23 K/uL (0.00-0.70); EOSINOPHILS % (AUTO) 2.82 % (1.0-6.0); HEMATOCRIT 32.9 % (41-53); HEMOGLOBIN 10.6 g/dL (13.5-17.5); LYMPHOCYTES # (AUTO) 1.3 K/uL (1.0-4.8); LYMPHOCYTES % (AUTO) 16.1 % (22.0-44.0); MEAN CORPUSCULAR HEMOGLOBIN 29.8 pg (26.0-34.0); MEAN CORPUSCULAR HGB CONC 32.4 G/dL (31.0-37.0); MEAN CORPUSCULAR VOLUME 92 fL (80-100); MONOCYTES # (AUTO) 0.7 K/uL (0.1-1.0); MONOCYTES % (AUTO) 8.3 % (2.0-9.0); NEUTROPHILS # (AUTO) 5.9 K/uL (1.8-7.7); NEUTROPHILS % (AUTO) 72.4 % (40.0-70.0); PLATELET COUNT (AUTO) 213 K/uL (150-450); RED BLOOD CELL COUNT(AUTO) 3.56 MIL/uL (4.50-5.90); RED CELL DISTRIBUTION WIDTH 18.2 % (11.5-14.5)
[2017-12-01 07:18] LABS: GLUCOSE,POINT OF CARE 92 MG/DL (70-110)
[2017-12-01 07:18] LABS: GLUCOSE,POINT OF CARE 91 MG/DL (70-110)
[2017-12-01 08:00] VITALS: BP 130/72
[2017-12-01] MEDS: FUROSEMIDE 40 MG/4 ML VIAL IVP SCH ×2 (08:52→21:34)
[2017-12-01] MEDS: ENOXAPARIN SODIUM 80 MG/0.8 ML PF SYRINGE SQ SCH ×2 (08:52→21:34)
[2017-12-01] MEDS: PANTOPRAZOLE SODIUM 40 MG DR TABLET PO SCH (08:53)
[2017-12-01] MEDS: AMINO ACIDS/PROTEIN HYDROLYS 30 ML TUBE PO SCH (08:53)
[2017-12-01] MEDS: ASPIRIN 81 MG EC TABLET PO SCH (08:53)
[2017-12-01] MEDS: DOCUSATE SODIUM 100 MG CAPSULE PO SCH ×2 (08:53→21:34)
[2017-12-01] MEDS: NYSTATIN 15 GM POWDER BOTTLE TP SCH (08:54)
[2017-12-01 09:17] LABS: ABG A-A DIFF O2 252.5 mmHg (10-20.0); ABG BASE EXCESS 9.8 mmol/L (-2.0-3.0); ABG CARBOXYHEMOGLOBIN 0.8 % (0.0-1.5); ABG HCO3 32.9 mmol/L (22.0-26.0); ABG METHEMOGLOBIN 0.2 % (0.0-1.5); ABG OXYGEN CONTENT 14.9 mL/dL (15.0-23.0); ABG OXYGEN SATURATION 92.3 % (95.0-98.0); ABG OXYHEMOGLOBIN 91.4 % (94.0-100.0); ABG PCO2 38 mmHg (35-45); ABG PH 7.544 (7.35-7.450); ABG TOTAL HEMOGLOBIN 11.6 G/dL (12.0-18.0); PO2, ARTERIAL BG 60.9 mmHg (79.0-87.0); SOURCE, BLOOD GAS ARTERIAL; TEMPERATURE, FAHRENHEIT, BG 98.6 FAHREN (96.0-98.6)
[2017-12-01 09:18] LABS: O2 DEVICE,BLOOD GAS VENTILATOR (ROOM AIR); SITE, BLOOD GAS RT RADIAL; VT, ABG 700 ml
[2017-12-01 12:00] VITALS: BP 139/75
[2017-12-01 15:28] LABS: GLUCOSE,POINT OF CARE 124 MG/DL (70-110)
[2017-12-01 16:00] VITALS: BP 128/67
[2017-12-01 19:12] LABS: GLUCOSE,POINT OF CARE 136 MG/DL (70-110)
[2017-12-01 20:00] VITALS: BP 122/61
[2017-12-02] VITALS: BP 133/69
[2017-12-02] MEDS: PROPOFOL 1000 MG/ISO-OSM 100 ML IV PRN ×3 (01:41→09:18)
[2017-12-02 02:47] LABS: GLUCOSE,POINT OF CARE 116 MG/DL (70-110)
[2017-12-02 04:00] VITALS: BP 121/64
[2017-12-02] MEDS: CefTRIAXone 1 GM/DEXTROSE 50 ML IV SCH (04:59)
[2017-12-02] MEDS: AZITHROMYCIN 500 MG/NS 250 ML IV SCH (05:41)
[2017-12-02 08:00] VITALS: BP 130/63
[2017-12-02] MEDS ORDERED: AMINO ACIDS/PROTEIN HYDROLYS 30 ML TUBE PO SCH (08:00)
[2017-12-02 08:18] LABS: GLUCOSE,POINT OF CARE 109 MG/DL (70-110)
[2017-12-02 08:44] LABS: ANION GAP 4 mmol/L (8-16); CALCIUM, TOTAL 8.5 mg/dL (8.8-10.5); CARBON DIOXIDE 35 mmol/L (22-29); CHLORIDE 101 mmol/L (98-107); CREATININE 0.92 mg/dL (0.60-1.30); GLOMERULAR FILTR. RATE CALC > 60 mL/min (>60); GLUCOSE,RANDOM 113 mg/dL (70-110); POTASSIUM 3.5 mmol/L (3.5-5.1); SODIUM SERUM 140 mmol/L (136-145); UREA NITROGEN, BLOOD 30 mg/dL (7-18)
[2017-12-02] MEDS: ASPIRIN 81 MG EC TABLET PO SCH (08:59)
[2017-12-02] MEDS: ENOXAPARIN SODIUM 80 MG/0.8 ML PF SYRINGE SQ SCH (08:59)
[2017-12-02] MEDS: DOCUSATE SODIUM 100 MG CAPSULE PO SCH (08:59)
[2017-12-02] MEDS: POTASSIUM CHL 10 MEQ/WATER 50 ML IV PRN ×2 (08:59→10:32)
[2017-12-02] MEDS: NYSTATIN 15 GM POWDER BOTTLE TP SCH (09:00)
[2017-12-02] MEDS: PANTOPRAZOLE SODIUM 40 MG DR TABLET PO SCH (09:00)
[2017-12-02] MEDS: FUROSEMIDE 40 MG/4 ML VIAL IVP SCH (09:00)
[2017-12-02] MEDS ORDERED: DiphenhydrAMINE HCL 50 MG/ML VIAL IVP PRN (11:15)
[2017-12-02] MEDS ORDERED: ONDANSETRON HCL 4 MG/2 ML VIAL IVP PRN (11:15)
[2017-12-02] MEDS: MORPHINE SULFATE 100 MG/NS/PF 100 ML IV PRN (11:33)
[2017-12-02 12:00] VITALS: BP 139/69
[2017-12-02 16:00] VITALS: BP 134/60
[2017-12-02 20:00] VITALS: BP 104/59
[2017-12-03] VITALS: BP 82/51
[2017-12-03 04:00] VITALS: BP 57/40
[2017-12-03] MEDS: MORPHINE SULFATE 100 MG/NS/PF 100 ML IV PRN (06:03)
[2017-12-03 08:00] VITALS: BP 55/38
== END 2017-12-03 09:41 | disposition expired | DRG 870 ==
LOC: EMS 00:21 → ICU 06:58
PROVIDERS: ADMIT Internal Medicine; ATTEND Internal Medicine
PROC: 5A1955Z Respiratory Ventilation, Greater than 96 Consecutive Hours (ICD-10-PCS; principal; 2017-11-22)
PROC: 0BH17EZ Insertion of Endotracheal Airway into Trachea, Via Natural or Artificial Opening (ICD-10-PCS; 2017-11-22)
PROC: 0W993ZZ Drainage of Right Pleural Cavity, Percutaneous Approach (ICD-10-PCS; 2017-11-23)
PROC: 02HV33Z Insertion of Infusion Device into Superior Vena Cava, Percutaneous Approach (ICD-10-PCS; 2017-11-23)
DX: A41.9 Sepsis, unspecified organism (principal); R65.21 Severe sepsis with septic shock; J18.9 Pneumonia, unspecified organism; I50.41 Acute combined systolic (congestive) and diastolic (congestive) heart failure; N17.9 Acute kidney failure, unspecified; J90 Pleural effusion, not elsewhere classified; J96.01 Acute respiratory failure with hypoxia; J96.02 Acute respiratory failure with hypercapnia; I82.403 Acute embolism and thrombosis of unspecified deep veins of lower extremity, bilateral; Z68.43 Body mass index [BMI] 50.0-59.9, adult; I13.0 Hypertensive heart and chronic kidney disease with heart failure and stage 1 through stage 4 chronic kidney disease, or unspecified chronic kidney disease; I11.0 Hypertensive heart disease with heart failure; E87.5 Hyperkalemia; Z51.5 Encounter for palliative care; E66.01 Morbid (severe) obesity due to excess calories; Z66 Do not resuscitate; H61.20 Impacted cerumen, unspecified ear; C43.9 Malignant melanoma of skin, unspecified; E11.22 Type 2 diabetes mellitus with diabetic chronic kidney disease; I50.9 Heart failure, unspecified; N18.9 Chronic kidney disease, unspecified; Z59.0 Homelessness; Z79.84 Long term (current) use of oral hypoglycemic drugs
CPT/HCPCS: 31500; 32555; 76942; 82042; 82805; 82945; 82962; 83615; 83735; 84100; 84132; 84157; 87040; 87070; 87081; 87147; 87205; 89051; 90471; 93005; 93306; 93308; 93970; 94002; 94003; 96365; 96368; 96374; 96375; 99291; J0330; J0456; J0696; J1644; J1650; J1940; J2270; J2370; J2704; J3480; J3490; J7030; J7050